=== PATIENT | female | born 1960 | race Caucasian/White ===

== ENCOUNTER → 2017-09-05 | Outpatient (CLI) | payer BC ==
[2017-09-05 11:01] LABS: THYROID STIM HORMONE (HS) 0.988 uIU/ml (0.358-4.75)
== END | disposition home or self-care (01) ==
LOC: LAB 09:54
DX: R53.82 Chronic fatigue, unspecified (principal); R13.10 Dysphagia, unspecified; L65.9 Nonscarring hair loss, unspecified